=== PATIENT | male | born 1955 | race African-American/Black ===

== ENCOUNTER 2016-05-07 08:04 | Emergency (ER) | payer SELFPAY ==
[~2016-05-07] VITALS: Ht 180.3 cm; Wt 112.0 kg
[2016-05-07 08:13] VITALS: BP 149/86
[2016-05-07] MEDS ORDERED: ASPI-1035 PO (08:18)
[2016-05-07] MEDS ORDERED: ATOR80TA76 PO (08:18)
== END 2016-05-07 09:13 | disposition home or self-care (01) ==
LOC: ER 08:53
DX: E78.5 Hyperlipidemia, unspecified (principal); I10 Essential (primary) hypertension; Z86.73 Personal history of transient ischemic attack (TIA), and cerebral infarction without residual deficits; E78.00 Pure hypercholesterolemia, unspecified; Z79.82 Long term (current) use of aspirin
CPT/HCPCS: 99283

== ENCOUNTER 2024-12-04 13:55 | Emergency (ER) | payer SELFPAY ==
[~2024-12-04] VITALS: Ht 182.9 cm; Wt 91.0 kg
[~2024-12-04 13:55] MED LIST: ASPI-1497 PO; ATOR-2 PO
[2024-12-04 13:59] VITALS: BP 122/62; PULSE 77; RESP 18; TEMP 36.6; O2SAT 99
== END 2024-12-04 17:47 | disposition home or self-care (01) ==
LOC: ER 13:55
DX: R47.81 Slurred speech (principal); E78.00 Pure hypercholesterolemia, unspecified; I10 Essential (primary) hypertension; Z86.73 Personal history of transient ischemic attack (TIA), and cerebral infarction without residual deficits; Z79.899 Other long term (current) drug therapy
CPT/HCPCS: 93005; 99283; 99284

== ENCOUNTER 2025-01-28 15:24 | Inpatient (IN) | payer MEDICARE, MEDICAID ==
[~2025-01-28] VITALS: Ht 188 cm; Wt 92.1 kg
[2025-01-28 15:30] VITALS: O2SAT 98
[2025-01-28 17:04] LABS: BASOPHILS % 0.5 % (0.0-2.0); EOSINOPHILS % 1.7 % (0.0-5.0); HEMATOCRIT. 29.2 % (42.0-52.0); HEMOGLOBIN. 10.1 g/dL (14.0-18.0); LYMPHOCYTES % 17.2 % (20.0-50.0); MEAN PLATELET VOLUME 6.6 fl (7.4-10.4); MONOCYTES % 9.2 % (2.0-8.0); NEUTROPHILS % 71.4 % (40.0-76.0); PLATELET 225 x1000/uL (130-400); RED BLOOD CELL COUNT 3.23 mill/uL (4.7-6.1); RED CELL DISTRIBUTION WIDTH 13.7 % (11.6-14.6)
[2025-01-28 17:22] LABS: CREATININE 1.0 mg/dL (0.6-1.3)
[2025-01-28 17:23] LABS: PROTEIN TOTAL 7.0 g/dL (6.0-8.3); TROPONIN I HIGH SENSITIVITY 9 ng/L (3.0-53); UREA NITROGEN BLOOD 14 mg/dL (9-23)
[2025-01-28 17:24] LABS: ASPARTATE AMINOTRANSFERASE 16 IU/L (<34); BILIRUBIN DIRECT 0.3 mg/dL (<=3.0)
[2025-01-28 17:25] LABS: BILIRUBIN TOTAL 0.9 mg/dL (0.1-1.0)
[2025-01-28] MEDS ORDERED: CLONIDINE 0.1MG TABLET PO PRN (19:15)
[2025-01-28] MEDS ORDERED: ZOLPIDEM TARTRATE 5MG TABLET PO PRN (19:15)
[2025-01-28] MEDS ORDERED: DEXTROSE 50% WATER 50ML SYRINGE IV PRN (19:15)
[2025-01-28] MEDS ORDERED: MAGNESIUM/ALUMINUM HYDROXIDE/SIMETHICONE 30ML UDC PO PRN (19:15)
[2025-01-28] MEDS ORDERED: ACETAMINOPHEN 325MG TABLET PO PRN (19:15)
[2025-01-28] MEDS ORDERED: ONDANSETRON HCL 4MG/2ML INJ IV PRN (19:15)
[2025-01-28] MEDS ORDERED: NALOXONE HCL 0.4MG/ML VIAL IV PRN (19:30)
[2025-01-28 20:00] VITALS: BP 114/70; PULSE 75; PULSE 85; RESP 18; TEMP 36.8072; TEMP 37; O2SAT 97
[2025-01-28] MEDS: BLOOD SUGAR DIAGNOSTIC STRIP TEST SCH (21:00)
[2025-01-28] MEDS: HYDROCODONE/ACETAMINOPHEN 5/325MG TABLET PO PRN (22:32)
[2025-01-28] MEDS: ENOXAPARIN 40MG/0.4ML SYR SUBCUT SCH (22:33)
[2025-01-28] MEDS: INSULIN LISPRO 100 UNITS/ML SUBCUT SCH (22:35)
[2025-01-28] MEDS: ATORVASTATIN CALCIUM 40MG TABLET PO SCH (22:37)
[2025-01-28 23:57] LABS: TROPONIN I HIGH SENSITIVITY 10 ng/L (3.0-53)
[2025-01-29] VITALS: BP 119/70; PULSE 78; RESP 20; TEMP 36.9; O2SAT 98
[2025-01-29 00:39] LABS: CLARITY URINE CLEAR (CLEAR); COLOR URINE YELLOW (YELLOW); GLUCOSE URINE NEGATIVE (NEGATIVE); KETONES URINE NEGATIVE (NEGATIVE); LEUKOCYTE ESTERASE URINE NEGATIVE (NEGATIVE); NITRITE URINE NEGATIVE (NEGATIVE); OCCULT BLOOD URINE NEGATIVE (NEGATIVE); PH URINE 5.5 (4.5-8.0); PROTEIN URINE NEGATIVE (NEGATIVE); SPECIFIC GRAVITY URINE 1.018 (1.005-1.030); UROBILINOGEN URINE 1.0 E.U./dL (0.2-1.0)
[2025-01-29 00:50] LABS: *AMPHETAMINES SCREEN URINE NEGATIVE (NEGATIVE); *BARBITURATES SCREEN URINE NEGATIVE (NEGATIVE); *BENZODIAZEPINES SCREEN URINE NEGATIVE (NEGATIVE); *COCAINE SCREEN URINE NEGATIVE (NEGATIVE); CANNABINOID URINE SCREEN NEGATIVE (NEGATIVE); ECSTASY MDMA SCREEN URINE NEGATIVE (NEGATIVE); METHADONE URINE SCREEN NEGATIVE (NEGATIVE); OPIATES URINE SCREEN NEGATIVE (NEGATIVE); PHENCYCLIDINE URINE SCREEN NEGATIVE (NEGATIVE)
[2025-01-29] MEDS: MORPHINE SULFATE 2 MG/ML INJ (NOT FOR IM USE) IV PRN (01:43)
[2025-01-29 04:00] VITALS: BP 120/80; PULSE 82; RESP 20; TEMP 36.7; O2SAT 98
[2025-01-29 06:14] LABS: BASOPHILS % 0.4 % (0.0-2.0); EOSINOPHILS % 2.0 % (0.0-5.0); HEMATOCRIT. 30.2 % (42.0-52.0); HEMOGLOBIN. 10.5 g/dL (14.0-18.0); LYMPHOCYTES % 20.4 % (20.0-50.0); MEAN PLATELET VOLUME 7.2 fl (7.4-10.4); MONOCYTES % 9.8 % (2.0-8.0); NEUTROPHILS % 67.4 % (40.0-76.0); PLATELET 211 x1000/uL (130-400); RED BLOOD CELL COUNT 3.30 mill/uL (4.7-6.1); RED CELL DISTRIBUTION WIDTH 13.8 % (11.6-14.6)
[2025-01-29 06:22] LABS: CREATININE 1.0 mg/dL (0.6-1.3); UREA NITROGEN BLOOD 11 mg/dL (9-23)
[2025-01-29 08:00] VITALS: BP 140/56; PULSE 77; RESP 18; TEMP 37.1; O2SAT 98
[2025-01-29] MEDS: ASPIRIN 81MG EC TABLET PO SCH (08:40)
[2025-01-29] MEDS: PANTOPRAZOLE SODIUM 40 MG/VIAL IV SCH (09:00)
[2025-01-29 12:00] VITALS: BP 115/6; PULSE 87; RESP 18; TEMP 36.8; O2SAT 98
[2025-01-29 16:00] VITALS: BP 144/73; PULSE 89; RESP 18; TEMP 36.4; O2SAT 98
[2025-01-29 20:00] VITALS: BP 129/77; PULSE 89; RESP 18; TEMP 36.9; O2SAT 97
[2025-01-30] VITALS: BP 119/77; PULSE 80; RESP 20; TEMP 37; O2SAT 98
[2025-01-30 04:00] VITALS: BP 107/65; PULSE 88; RESP 18; TEMP 36.7; O2SAT 97
[2025-01-30 07:22] LABS: BASOPHILS % 0.4 % (0.0-2.0); EOSINOPHILS % 2.0 % (0.0-5.0); HEMATOCRIT. 32.4 % (42.0-52.0); HEMOGLOBIN. 11.1 g/dL (14.0-18.0); LYMPHOCYTES % 18.9 % (20.0-50.0); MEAN PLATELET VOLUME 6.9 fl (7.4-10.4); MONOCYTES % 12.3 % (2.0-8.0); NEUTROPHILS % 66.4 % (40.0-76.0); PLATELET 208 x1000/uL (130-400); RED BLOOD CELL COUNT 3.55 mill/uL (4.7-6.1); RED CELL DISTRIBUTION WIDTH 13.9 % (11.6-14.6)
[2025-01-30 07:29] LABS: CREATININE 0.9 mg/dL (0.6-1.3)
[2025-01-30 07:30] LABS: UREA NITROGEN BLOOD 9 mg/dL (9-23)
[2025-01-30 08:00] VITALS: BP 122/70; PULSE 85; RESP 18; TEMP 35.9
[2025-01-30 12:00] VITALS: BP 142/82; PULSE 75; RESP 18; TEMP 35.9
[2025-01-30 16:00] VITALS: BP 140/80; PULSE 76; RESP 18; TEMP 36.2
[2025-01-30 20:00] VITALS: BP 149/76; PULSE 78; RESP 20; TEMP 36.8
[2025-01-31] VITALS: BP 123/71; PULSE 79; RESP 18; TEMP 37
[2025-01-31 04:00] VITALS: BP 153/79; PULSE 84; RESP 19; TEMP 36.8
[2025-01-31 08:00] VITALS: BP 130/90; PULSE 88; RESP 16; TEMP 36.3
[2025-01-31 12:00] VITALS: BP 132/86; PULSE 80; RESP 16; TEMP 36.4
[2025-01-31 13:54] LABS: CREATININE 1.0 mg/dL (0.6-1.3)
[2025-01-31 13:55] LABS: UREA NITROGEN BLOOD 13 mg/dL (9-23)
[2025-01-31 15:22] VITALS: BP 127/86; PULSE 80; RESP 18; TEMP 97.7
[2025-01-31 16:00] VITALS: BP 127/68; PULSE 86; RESP 18; TEMP 36.5
== END 2025-01-31 19:00 | DRG 311 ==
LOC: ER 15:24 → EDBEDREQ 17:51 → EDBEDREQTM 17:51 → 8WST 18:15
PROVIDERS: ADMIT Internal Medicine; ATTEND Internal Medicine
DX: I20.0 Unstable angina (principal); G93.40 Encephalopathy, unspecified; I69.354 Hemiplegia and hemiparesis following cerebral infarction affecting left non-dominant side; I50.9 Heart failure, unspecified; I11.0 Hypertensive heart disease with heart failure; E11.9 Type 2 diabetes mellitus without complications; R47.1 Dysarthria and anarthria; E78.00 Pure hypercholesterolemia, unspecified; Z74.01 Bed confinement status
CPT/HCPCS: 36415; 71045; 80048; 80076; 80305; 81003; 82962; 83735; 83880; 84443; 84484; 85025; 93005; 93306; 99285; A4606; A4615; J1650; J1815; J2270; J2470